=== PATIENT | male | born 1985 | race Caucasian/White ===

== ENCOUNTER 2016-08-01 18:04 | Inpatient (IN) | payer OTHER ==
[~2016-08-01] VITALS: Ht 185.4 cm; Wt 140.8 kg
[2016-08-01] MEDS ORDERED: GABAPENTIN TAB600 MG PO (18:12)
[2016-08-01] MEDS ORDERED: ALPRAZOLAM0.5 M3 PO (18:12)
[2016-08-01] MEDS ORDERED: TRAZODONE150 MG PO (18:12)
[2016-08-01] MEDS ORDERED: BUPROPION HCL150 M1 PO (18:12)
[2016-08-01 18:13] VITALS: BP 159/95
[2016-08-01 18:58] LABS: BASO # 0.1 10*3/uL (0.0-0.1); BASO % 0.5 % (0.0-1.0); EOS # 0.1 10*3/uL (0.0-0.4); EOS % 0.6 % (1.0-4.0); HEMOGLOBIN 15.4 g/dl (14.0-18.0); LYMPH # 3.1 10*3/uL (1.3-4.4); LYMPH % 28.5 % (27.0-41.0); MEAN CELL VOLUME 86.6 fl (80.0-94.0); MEAN CORPUSCULAR HGB 30.3 pg (27.0-31.0); MEAN PLATELET VOLUME 10.5 fl (9.6-12.3); MONO # 0.6 10*3/uL (0.1-1.0); MONO % 5.3 % (3.0-9.0); NEUT % 64.7 % (47.0-73.0); PLATELET COUNT AUTOMATED 327 10*3/uL (130-400); RED BLOOD COUNT 5.08 10*6/uL (4.50-5.90); RED CELL DISTRI WIDTH 12.8 % (0-14.5); WHITE BLOOD COUNT 10.8 10*3/uL (4.8-10.8)
[2016-08-01 19:09] LABS: INTERNATIONAL NORM RATIO 1.1 (2.0-3.5); PROTHROMBIN TIME 11.2 SECONDS (9.0-12.4)
[2016-08-01 19:13] LABS: ALBUMIN 3.8 gm/dl (3.1-4.5); ALKALINE PHOSPHATASE 87 U/L (45-117); BILIRUBIN, TOTAL 0.8 mg/dl (0.2-1.0); BUN 11 mg/dl (7-24); C-REACTIVE PROTEIN 0.83 MG/DL (0-0.3); CARBON DIOXIDE 26 mmol/L (21-32); CHLORIDE 108 mmol/L (98-107); CKMB 0.9 ng/ml (0.5-3.6); CPK 110 U/L (39-308); EST GLOM FILT AFRICAN AMERICAN > 60 ml/min; GLUCOSE 143 mg/dL (65-99); POTASSIUM 3.8 mmol/L (3.5-5.1); SGOT/AST 45 IU/L (3-35); SGPT/ALT 102 U/L (12-78); SODIUM 142 mmol/L (136-145); TOTAL PROTEIN 8.4 gm/dL (6.4-8.2); TROPONIN I < 0.015 ng/ml (<0.045)
[2016-08-01 20:00] VITALS: BP 151/93
[2016-08-01 20:06] LABS: BILIRUBIN NEGATIVE (NEGATIVE); BLOOD NEGATIVE (NEGATIVE); CLARITY SL CLOUDY (CLEAR); COLOR YELLOW (YELLOW); GLUCOSE NEGATIVE (NEGATIVE); KETONE NEGATIVE (NEGATIVE); LEUKO ESTERASE NEGATIVE (NEGATIVE); NITRITE NEGATIVE (NEGATIVE); PROTEIN 1+ (NEGATIVE); SPECIFIC GRAVITY >= 1.030 (1.005-1.030)
[2016-08-01 20:16] LABS: URINE AMPHETAMINES < 1000 (1000ng/ml); URINE BARBITURATES < 200 (200ng/ml); URINE COCAINE > 300 (300ng/ml)
[2016-08-01 20:25] LABS: BACTERIA TRACE; MUCOUS 1+; RBC 0-2 rbc/hpf (0-2)
[2016-08-01 20:26] LABS: URINE REFLEX COMMENT NO (NO)
[2016-08-02] VITALS: BP 146/70
[2016-08-02 04:00] VITALS: BP 118/54
[2016-08-02 08:00] VITALS: BP 144/74
[2016-08-02 16:00] VITALS: BP 143/82
[2016-08-02 20:00] VITALS: BP 160/60
[2016-08-03] VITALS: BP 143/59
[2016-08-03 06:47] LABS: BASO # 0.1 10*3/uL (0.0-0.1); BASO % 0.9 % (0.0-1.0); EOS # 0.3 10*3/uL (0.0-0.4); EOS % 4.1 % (1.0-4.0); HEMATOCRIT 42.3 % (42.0-52.0); HEMOGLOBIN 14.6 g/dl (14.0-18.0); LYMPH # 3.3 10*3/uL (1.3-4.4); LYMPH % 42.1 % (27.0-41.0); MEAN CELL VOLUME 88.9 fl (80.0-94.0); MEAN CORPUSCULAR HGB 30.7 pg (27.0-31.0); MEAN CORPUSCULAR HGB CONC 34.5 g/dl (33.0-37.0); MEAN PLATELET VOLUME 10.6 fl (9.6-12.3); MONO # 0.6 10*3/uL (0.1-1.0); NEUT # 3.5 10*3/uL (2.3-7.9); NEUT % 44.5 % (47.0-73.0); PLATELET COUNT AUTOMATED 256 10*3/uL (130-400); RED BLOOD COUNT 4.76 10*6/uL (4.50-5.90); RED CELL DISTRI WIDTH 13.2 % (0-14.5); WHITE BLOOD COUNT 7.9 10*3/uL (4.8-10.8)
[2016-08-03 07:06] LABS: HIV 1+2 AB + HIV1 P24 AG Non Reactive (Non Reactive)
[2016-08-03 07:11] LABS: BUN 7 mg/dl (7-24); CARBON DIOXIDE 26 mmol/L (21-32); CHLORIDE 107 mmol/L (98-107); EST GLOM FILT AFRICAN AMERICAN > 60 ml/min; GLUCOSE 129 mg/dL (65-99); POTASSIUM 3.7 mmol/L (3.5-5.1); SODIUM 142 mmol/L (136-145)
[2016-08-03 07:37] LABS: HEPATITIS C VIRUS ANTIBODY >11.0 s/co (0.0-0.9)
[2016-08-03 08:00] VITALS: BP 126/81
[2016-08-03 16:00] VITALS: BP 144/77
[2016-08-03 20:00] VITALS: BP 131/62
[2016-08-04] VITALS: BP 127/67
[2016-08-04 07:15] LABS: BASO # 0.1 10*3/uL (0.0-0.1); BASO % 0.7 % (0.0-1.0); EOS # 0.3 10*3/uL (0.0-0.4); EOS % 3.2 % (1.0-4.0); HEMATOCRIT 43.8 % (42.0-52.0); HEMOGLOBIN 15.5 g/dl (14.0-18.0); IG # 0.1 10*3/uL (0.0-0.1); LYMPH % 38.6 % (27.0-41.0); MEAN CELL VOLUME 86.1 fl (80.0-94.0); MEAN CORPUSCULAR HGB 30.5 pg (27.0-31.0); MEAN CORPUSCULAR HGB CONC 35.4 g/dl (33.0-37.0); MEAN PLATELET VOLUME 10.5 fl (9.6-12.3); MONO % 9.8 % (3.0-9.0); NEUT # 4.9 10*3/uL (2.3-7.9); NEUT % 47.2 % (47.0-73.0); PLATELET COUNT AUTOMATED 267 10*3/uL (130-400); RED BLOOD COUNT 5.09 10*6/uL (4.50-5.90); WHITE BLOOD COUNT 10.3 10*3/uL (4.8-10.8)
[2016-08-04 07:42] LABS: BUN 9 mg/dl (7-24); CARBON DIOXIDE 26 mmol/L (21-32); CHLORIDE 107 mmol/L (98-107); EST GLOM FILT AFRICAN AMERICAN > 60 ml/min; GLUCOSE 138 mg/dL (65-99); POTASSIUM 4.1 mmol/L (3.5-5.1); SODIUM 143 mmol/L (136-145)
[2016-08-04 08:00] VITALS: BP 144/60
[2016-08-04] MEDS ORDERED: SEPTRA DS 800 M1 TAB PO (11:20)
[2016-08-07 10:58] LABS: HEPATITIS C VIRUS ANTIBODY >11.0 s/co (0.0-0.9)
== END 2016-08-04 12:00 | disposition home or self-care (01) | DRG 897 ==
LOC: ED 18:04 → 4E 18:32 → EDHOLD 18:32 → 4E 18:51
PROVIDERS: Emergency Medicine; Hospitalist; Surgery
DX: F11.23 Opioid dependence with withdrawal (principal); Z68.41 Body mass index [BMI] 40.0-44.9, adult; L03.113 Cellulitis of right upper limb; L02.413 Cutaneous abscess of right upper limb; E66.01 Morbid (severe) obesity due to excess calories; F17.210 Nicotine dependence, cigarettes, uncomplicated; F41.1 Generalized anxiety disorder; F14.10 Cocaine abuse, uncomplicated; R74.0 Nonspecific elevation of levels of transaminase and lactic acid dehydrogenase [LDH]; Z53.29 Procedure and treatment not carried out because of patient's decision for other reasons; Z81.8 Family history of other mental and behavioral disorders; Z79.899 Other long term (current) drug therapy

== ENCOUNTER 2016-11-20 16:24 | Emergency (ER) | payer OTHER ==
[~2016-11-20] VITALS: Ht 185.4 cm; Wt 133.8 kg
[~2016-11-20 16:24] MED LIST: ALPRAZOLAM0.5 M3 PO; BUPROPION HCL150 M1 PO; GABAPENTIN TAB600 MG PO; SEPTRA DS 800 M1 TAB PO; TRAZODONE150 MG PO
[2016-11-20 16:28] VITALS: BP 139/81
--- NOTE | 2016-11-20 16:41 | NUR ---
PATIENT STATES HE USES [facility] WELL.
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
== END 2016-11-20 17:36 | disposition left against medical advice (07) ==
LOC: ED 16:24 → EDHOLD 16:38 → 4E 16:45 → ED 17:36
DX: F11.23 Opioid dependence with withdrawal (principal); F19.10 Other psychoactive substance abuse, uncomplicated; F14.10 Cocaine abuse, uncomplicated; F41.1 Generalized anxiety disorder; F17.200 Nicotine dependence, unspecified, uncomplicated; Z79.899 Other long term (current) drug therapy

== ENCOUNTER 2017-04-12 18:56 | Inpatient (IN) | payer OTHER ==
[~2017-04-12] VITALS: Ht 185.4 cm; Wt 159.5 kg
--- NOTE | ~2017-04-12 | PR ---
[place], [place] PROGRESS NOTE [id number] UNIT #: [id number] ROOM: 519 DOCTOR: ISABELLA VENTURA,MAY BIRTHDATE: [birth year] DOS: 04/14/2017 SUBJECTIVE: The patient is an IV drug user, who presented for treatment for his addiction. He also had left hand abscess and right calf abscess. His cultures from debridement of his abscesses both have heavy gram-positive cocci on the gram stains and on the culture. He was debrided yesterday by Dr. Mckeon. Blood cultures remained sterile. He is alert and oriented. He states pain in the right leg is improving. No nausea, vomiting or diarrhea. No rash or itch. No cough or shortness of breath. No fevers or shaking chills. LABORATORY DATA: WBC is 10.9, platelets 234. BUN 10, creatinine 0.81. LFTs within normal limits. Vancomycin trough of 15.1. Hepatitis and HIV serology pending. Most recent vancomycin trough 15.1. CURRENT MEDICATIONS: Vancomycin, Desyrel, cefepime, insulin, Neurontin, Lovenox, Subutex, Requip, Robaxin, Vistaril, Bentyl. PHYSICAL EXAMINATION: VITAL SIGNS: Temperature 98.0, pulse 74, respirations 21, BP 150/87. GENERAL: A 31-year-old male, in no acute distress, nontoxic in appearance. HEAD, EYES, EARS, NOSE AND THROAT: Normocephalic. No thrush. LUNGS: Clear to auscultation bilaterally. Respirations even and unlabored. HEART: Regular rhythm. No murmur appreciated. ABDOMEN: Soft, nontender. EXTREMITIES: Right lower extremity with +2 edema. Leg dressing is dry and intact. Left hand dressing is dry and intact. SKIN: Otherwise warm, dry. He has numerous areas of scarring and some small scabs on his bilateral upper extremities from his years of IV drug use, but no signs of any other cellulitis or phlebitis or abscesses. ASSESSMENT: Left hand and right leg abscesses due to IV drug abuse, with gram-positive cocci on both cultures, likely methicillin-resistant Staphylococcus aureus given his history of IV drug abuse. PLAN: We will stop the cefepime, continue the IV vancomycin, follow up on his cultures. I did discuss with him the risk of MRSA septicemia, endocarditis, sepsis and , etc. with continued IV drug abuse. KINZA MASON CNP [place], [place] PROGRESS NOTE NAME: ORIANA WILLIAM Britt UNIT #: [id number] ROOM: [facility] DOCTOR: ISABELLA VENTURAMAY BIRTHDATE: [birth year] MCKAY CARTER MD CM:PNTRANS [id number] KINZA ISABELLA VENTURA 04/15/17 0304 interface
--- NOTE | ~2017-04-12 | PR ---
[place], [place] PROGRESS NOTE NAME: ORIANA WILLIAM UNIT #: [id number] ROOM: 519 DOCTOR: EMMA PORTILLO,MCKAY Weeks BIRTHDATE: [birth year] DOS: 04/15/2017 ADDENDUM After reviewing chart, labs and microbiology, I agree with the above plans as described. We will follow the patient clinically and adjust accordingly. MCKAY CARTER MD CM:PNTRANS [id number] [phone] MCKAY CARTER MD [id number] interface
--- NOTE | ~2017-04-12 | PR ---
[place], [place] PROGRESS NOTE [id number] UNIT #: [id number] ROOM: 519 DOCTOR: ISABELLA VENTURAMAY BIRTHDATE: [birth year] DOS: 04/15/2017 SUBJECTIVE: The patient his 31-year-old male, IV drug abuser, with abscess in left hand and right calf. Cultures from both are growing viridans strep. He is alert and oriented. He states his pain is much better. He is feeling better. Denies any fevers, chills, nausea, vomiting or diarrhea. No rash or itch. No cough or shortness of breath. He has had no labs done today. CURRENT MEDICATIONS: Rocephin, Desyrel, insulin, gabapentin, Lovenox, Subutex, Requip, Robaxin, Vistaril, Bentyl. PHYSICAL EXAMINATION: VITAL SIGNS: Temperature 98.4, pulse 75, respirations 18, BP 118/54. GENERAL: Alert and oriented 31-year-old male, in no acute distress. HEAD, EYES, EARS, NOSE AND THROAT: Normocephalic. No thrush. LUNGS: Clear to auscultation bilaterally. Respirations even and unlabored. HEART: Regular rhythm. No murmur appreciated. ABDOMEN: Soft, nondistended. EXTREMITIES: Left dorsal hand with mild induration. No erythema. No purulence. No tenderness. Right calf is dressed. Skin is otherwise warm, dry, free of rashes. Upper extremities with multiple areas of scarring from his IV drug use. ASSESSMENT: Left hand and right calf abscesses due to strep viridans. I have discussed with the patient. He has been using some old syringes, one which he straightened the needle with his teeth and another where he had also used his mouth to wet the plunger to make it work better and he probably contaminated it ____ viridans strep by doing that, leading to his abscesses. PLAN: At this point, we will change his vancomycin over to Rocephin and consider changing him to orals in the next day or so. Case discussed with Dr. Mckay Carter. MAY AUDREY MASON [place], [place] PROGRESS NOTE NAME: ORIANA WILLIAM Britt UNIT #: [id number] ROOM: [facility] DOCTOR: ISABELLA VENTURA,MAY BIRTHDATE: [birth year] MCKAY CARTER MD CM:PNDAMARIS [id number] KINZA ISABELLA VENTURA 04/16/17 0749 interface
[2017-04-12 19:01] VITALS: BP 149/87
[2017-04-12 20:16] LABS: BASO % 0.3 % (0.0-1.0); EOS # 0.1 10*3/uL (0.0-0.4); EOS % 1.1 % (1.0-4.0); HEMATOCRIT 38.6 % (42.0-52.0); HEMOGLOBIN 13.3 g/dl (14.0-18.0); LYMPH # 3.6 10*3/uL (1.3-4.4); MEAN CELL VOLUME 86.7 fl (80.0-94.0); MEAN CORPUSCULAR HGB 29.9 pg (27.0-31.0); MEAN CORPUSCULAR HGB CONC 34.5 g/dl (33.0-37.0); MEAN PLATELET VOLUME 11.2 fl (9.6-12.3); MONO # 1.3 10*3/uL (0.1-1.0); MONO % 9.8 % (3.0-9.0); NEUT # 7.8 10*3/uL (2.3-7.9); NEUT % 60.3 % (47.0-73.0); PLATELET COUNT AUTOMATED 218 10*3/uL (130-400); RED BLOOD COUNT 4.45 10*6/uL (4.50-5.90); RED CELL DISTRI WIDTH 12.6 % (0-14.5); WHITE BLOOD COUNT 12.9 10*3/uL (4.8-10.8)
[2017-04-12 20:29] LABS: BILIRUBIN NEGATIVE (NEGATIVE); BLOOD NEGATIVE (NEGATIVE); CLARITY SL CLOUDY (CLEAR); COLOR YELLOW (YELLOW); GLUCOSE 1+ (NEGATIVE); KETONE NEGATIVE (NEGATIVE); LEUKO ESTERASE NEGATIVE (NEGATIVE); NITRITE NEGATIVE (NEGATIVE); PH 5.5 (5.0-9.0); SPECIFIC GRAVITY >= 1.030 (1.005-1.030); UROBILINOGEN 0.2 E.U./dl (0.2-1.0)
[2017-04-12 20:31] LABS: ALBUMIN 3.4 gm/dl (3.1-4.5); ALKALINE PHOSPHATASE 82 U/L (45-117); BUN 8 mg/dl (7-24); CHLORIDE 103 mmol/L (98-107); CREATININE 0.97 mg/dL (0.70-1.30); ETHYL ALCOHOL < 3.0 mg/dl (<3); POTASSIUM 4.1 mmol/L (3.5-5.1); SGOT/AST 26 IU/L (3-35); SGPT/ALT 62 U/L (12-78); SODIUM 137 mmol/L (136-145); TOTAL PROTEIN 7.7 gm/dL (6.4-8.2)
[2017-04-12 20:34] LABS: EPITHELIAL CELLS 0-2; MUCOUS TRACE; RBC 0-2 rbc/hpf (0-2)
[2017-04-12 20:35] LABS: BACTERIA 1+
[2017-04-12 20:38] LABS: URINE AMPHETAMINES < 1000 (1000ng/ml); URINE BARBITURATES < 200 (200ng/ml); URINE BENZODIAZEPINES < 200 (200ng/ml); URINE CANNABINOIDS (THC) < 50 (50ng/ml); URINE COCAINE > 300 (300ng/ml); URINE METHADONE < 300 (300ng/ml); URINE OPIATES > 300 (300ng/ml)
[2017-04-12 20:42] LABS: URINE PHENCYCLIDINE < 25 (25ng/ml)
[2017-04-12 21:23] VITALS: BP 153/97
[2017-04-12 22:20] VITALS: BP 149/91
[2017-04-12] MEDS ORDERED: TRAZODONE150 MG PO (23:37)
[2017-04-13] VITALS (13 sets, daily range): BP systolic 118–142; BP diastolic 56–82
[2017-04-14] VITALS: BP 132/73
[2017-04-14 08:08] VITALS: BP 119/63
[2017-04-14 12:35] VITALS: BP 129/59
[2017-04-14 15:41] LABS: BASO # 0.1 10*3/uL (0.0-0.1); BASO % 0.5 % (0.0-1.0); EOS # 0.4 10*3/uL (0.0-0.4); EOS % 3.6 % (1.0-4.0); HEMATOCRIT 40.7 % (42.0-52.0); HEMOGLOBIN 14.2 g/dl (14.0-18.0); LYMPH # 3.1 10*3/uL (1.3-4.4); LYMPH % 28.2 % (27.0-41.0); MEAN CELL VOLUME 85.7 fl (80.0-94.0); MEAN CORPUSCULAR HGB 29.9 pg (27.0-31.0); MEAN CORPUSCULAR HGB CONC 34.9 g/dl (33.0-37.0); MEAN PLATELET VOLUME 10.7 fl (9.6-12.3); MONO % 9.1 % (3.0-9.0); NEUT # 6.3 10*3/uL (2.3-7.9); PLATELET COUNT AUTOMATED 234 10*3/uL (130-400); RED BLOOD COUNT 4.75 10*6/uL (4.50-5.90); RED CELL DISTRI WIDTH 12.3 % (0-14.5); WHITE BLOOD COUNT 10.9 10*3/uL (4.8-10.8)
[2017-04-14 15:56] LABS: ALBUMIN 3.2 gm/dl (3.1-4.5); ALKALINE PHOSPHATASE 74 U/L (45-117); BUN 10 mg/dl (7-24); CHLORIDE 104 mmol/L (98-107); CREATININE 0.81 mg/dL (0.70-1.30); SGOT/AST 27 IU/L (3-35); SGPT/ALT 57 U/L (12-78); SODIUM 139 mmol/L (136-145)
[2017-04-14 16:00] VITALS: BP 150/87
[2017-04-14 16:04] LABS: THYROID STIM HORMONE (HS) 0.967 uIU/ml (0.358-4.75)
[2017-04-14 20:00] VITALS: BP 146/83
[2017-04-15] VITALS: BP 133/72
[2017-04-15 08:00] VITALS: BP 126/62
[2017-04-15 10:02] LABS: HIV 1+2 AB + HIV1 P24 AG Non Reactive (Non Reactive)
[2017-04-15 11:04] LABS: HEPATITIS B SURFACE AG Negative (Negative)
[2017-04-15 12:00] VITALS: BP 136/78
[2017-04-15 16:00] VITALS: BP 118/54
[2017-04-15 20:00] VITALS: BP 148/90
[2017-04-16] VITALS: BP 130/74
[2017-04-16 07:40] LABS: HEPATITIS C VIRUS ANTIBODY >11.0 s/co (0.0-0.9)
[2017-04-16 08:00] VITALS: BP 112/61
[2017-04-16 12:00] VITALS: BP 147/69
[2017-04-16 16:00] VITALS: BP 150/87
[2017-04-16] MEDS ORDERED: KEFLEX500 M1 PO (16:52)
[2017-04-16] MEDS ORDERED: ROPINIROLE HYD0.5 MG PO (16:55)
[2017-04-16] MEDS ORDERED: ATARAX,VISTARIL50 MG PO (16:55)
[2017-04-16] MEDS ORDERED: OMNICEF300 MG PO (17:19)
== END 2017-04-16 17:20 | disposition home or self-care (01) | DRG 571 ==
LOC: ED 18:56 → EDHOLD 19:37 → 5E 19:37
PROVIDERS: Internal Medicine; Nurse Practitioner Family; Student in an Organized Health Care Education/Training Program
PROC: 0JBN0ZZ Excision of Right Lower Leg Subcutaneous Tissue and Fascia, Open Approach (ICD-10-PCS; principal; 2017-04-13)
PROC: 0Y3H0ZZ Control Bleeding in Right Lower Leg, Open Approach (ICD-10-PCS; 2017-04-13)
DX: L02.415 Cutaneous abscess of right lower limb (principal); L02.512 Cutaneous abscess of left hand; E66.01 Morbid (severe) obesity due to excess calories; F11.23 Opioid dependence with withdrawal; Z68.42 Body mass index [BMI] 45.0-49.9, adult; L03.119 Cellulitis of unspecified part of limb; F13.10 Sedative, hypnotic or anxiolytic abuse, uncomplicated; R73.9 Hyperglycemia, unspecified; B95.4 Other streptococcus as the cause of diseases classified elsewhere; L03.115 Cellulitis of right lower limb; F41.1 Generalized anxiety disorder; F14.90 Cocaine use, unspecified, uncomplicated; F19.90 Other psychoactive substance use, unspecified, uncomplicated; F17.200 Nicotine dependence, unspecified, uncomplicated; Z81.3 Family history of other psychoactive substance abuse and dependence; Z81.8 Family history of other mental and behavioral disorders; Z79.899 Other long term (current) drug therapy

== ENCOUNTER 2020-06-16 20:29 | Emergency (ER) | payer OTHER ==
[~2020-06-16] VITALS: Ht 185.4 cm; Wt 122.5 kg
[~2020-06-16 20:29] MED LIST changes: +ATARAX,VISTARIL50 MG PO; +KEFLEX500 M1 PO; +OMNICEF300 MG PO; +ROPINIROLE HYD0.5 MG PO
== END 2020-06-16 21:13 | disposition home or self-care (01) ==
LOC: ED 20:29
DX: F11.10 Opioid abuse, uncomplicated (principal); F14.90 Cocaine use, unspecified, uncomplicated